=== PATIENT | female | born 1990 | race Caucasian/White ===

== ENCOUNTER 2018-02-15 02:57 | Emergency (ER) | payer OTHER, SELFPAY ==
[~2018-02-15] VITALS: Ht 170.2 cm; Wt 60.0 kg
[2018-02-15] MEDS ORDERED: ONDANSETRON ODT 4 MG ONE ×2 (04:25→04:32)
[2018-02-15] MEDS ORDERED: ONDANSETRON ODT 4 MG PO ONE (04:30)
[2018-02-15 05:23] VITALS: BP 119/78
== END 2018-02-15 05:25 | disposition home or self-care (01) ==
LOC: ED 05:15
DX: J70.5 Respiratory conditions due to smoke inhalation (principal)
CPT/HCPCS: 36415; 82375; 99283; Q0162